=== PATIENT | male | born 1970 ===

== ENCOUNTER 2019-07-24 06:27 | Day surgery (SDC) | payer OTHER ==
[~2019-07-24 06:27] MED LIST: BACLOFEN5 MG PO; CLONAZEPAM0.25 MG; [UNRECOGNIZED DRUG - OTHER] PO
== END 2019-07-24 20:51 | disposition home or self-care (01) ==
LOC: CIR.AMB 06:27
DX: K60.1 Chronic anal fissure (principal); K64.8 Other hemorrhoids; K64.4 Residual hemorrhoidal skin tags